=== PATIENT | female | born 1950 | race Hispanic/Latino ===

== ENCOUNTER 2019-06-10 07:41 | Emergency (ER) | payer OTHER, MEDICARE ==
[2019-06-10 08:19] LABS: Basophils % 0.6 % (0-1.3); Hematocrit 45.8 % (36.0-45.0); Lymphocytes % 28.5 % (15.3-44.8); MPV 8.9 fL (7.6-11.3); RBC Red Blood Cell Count 5.34 M/uL (3.86-4.86)
[2019-06-10 08:21] LABS: Protime INR 0.96
[2019-06-10 08:35] LABS: ALT/SGPT 41 U/L (12-78); AST/SGOT 24 U/L (15-37); Albumin 3.6 g/dL (3.4-5.0); Alkaline Phosphatase 150 U/L (45-117); BUN Blood Urea Nitrogen 24 mg/dL (7-18); Bicarbonate 30 mmol/L (21-32); Bilirubin Direct 0.1 mg/dL (0-0.2); Bilirubin Total 0.5 mg/dL (0.2-1.0); Glucose Level 106 mg/dL (74-106); Magnesium 2.5 mg/dL (1.8-2.4); NT PRO-BNP 46 pg/mL (<125); Potassium 3.7 mmol/L (3.5-5.1); Protein, Total 7.5 g/dL (6.4-8.2); Sodium Level 142 mmol/L (136-145); Troponin (Emerg Dept Use Only) < 0.02 ng/mL (0.0-0.045)
[2019-06-10] MEDS ORDERED: KETOROLAC 30 MG/ML INJ ONE (08:56)
--- NOTE | 2019-06-10 09:10 | RAD REPORT ---
EXAM DESCRIPTION: Samir Single View06/10/2019 8:13 am CLINICAL HISTORY: Chest pain COMPARISON: October 2018 FINDINGS: The lungs appear clear of acute infiltrate. The heart is normal size IMPRESSION: No acute abnormalities displayed
--- NOTE | 2019-06-10 09:53 | ER ---
Nurse's Notes [facility] Name: Anjelica Davidson Age: 68 yrs Sex: Female : 1950 Arrival Date: 06/10/2019 Time: 07:43 Bed 5 Private MD: Dexter Woody Diagnosis: Chest pain, unspecified Presentation: 06/10 07:44 Presenting complaint: Right breast pain that began Sunday and resolved. Pt reports aa5 pain came back last night. Denies SOB or other symptoms. Pt reports pain is aggravated by movement. 07:44 Transition of care: patient was not received from another setting of care. Onset of aa5 symptoms was May 2019. Risk Assessment: Do you want to hurt yourself or someone else? Patient reports no desire to harm self or others. Initial Sepsis Screen: Does the patient meet any 2 criteria? No. Patient's initial sepsis screen is negative. Does the patient have a suspected source of infection? No. Patient's initial sepsis screen is negative. Care prior to arrival: None. 07:44 Acuity: IMAN 3 aa5 07:44 Method Of Arrival: Wheelchair aa5 Historical: - Allergies: 07:48 [place]; aa5 07:48 Promethazine; aa5 07:48 Cephalexin (Rash); aa5 07:48 Azithromycin (Rash); aa5 - Home Meds: 07:48 Lasix 20 mg Oral tab [Active]; metoprolol ER 25mg [Active]; lovastatin 20 mg Oral tab aa5 [Active]; Replesta 50,000 unit oral wafr [Active]; - PMHx: 07:48 Hypertension; Hyperlipidemia; aa5 - PSHx: 07:48 hemorrhoidectomy; Hysterectomy; aa5 07:48 Appendectomy; Cholecystectomy; Knee surgery; aa5 - Immunization history:: Pneumococcal vaccine is up to date, Flu vaccine is up to date. - Social history:: Smoking status: Patient/guardian denies using tobacco, Patient/guardian denies using alcohol, street drugs, The patient lives with family. - Ebola Screening: : No symptoms or risks identified at this time. - Family history:: not pertinent. Screenin:55 Abuse screen: Denies threats or abuse. Nutritional screening: No deficits noted. aa5 Tuberculosis screening: No symptoms or risk factors identified. Fall Risk None identified. Assessment: 07:45 General: Appears uncomfortable, Behavior is calm, cooperative. Pain: Complains of pain aa5 in right breast Pain does not radiate. Pain currently is 10 out of 10 on a pain scale. Quality of pain is described as sharp, Pain began 2-3 days ago. Is episodic, lasting a few seconds. Neuro: Level of Consciousness is awake, alert, obeys commands, Oriented to person, place, time, situation. Cardiovascular: Heart tones S1 S2 present Rhythm is regular. Respiratory: Airway is patent Respiratory effort is even, unlabored, Respiratory pattern is regular, symmetrical, Breath sounds are clear bilaterally. Denies cough, shortness of breath. GI: Abdomen is round obese, Bowel sounds present X 4 quads. Abd is soft and non tender X 4 quads. Patient currently denies nausea, vomiting. : No signs and/or symptoms were reported regarding the genitourinary system. EENT: No signs and/or symptoms were reported regarding the EENT system. Derm: Skin is pink, warm \\T\\ dry. Musculoskeletal: Range of motion: intact in all extremities. 07:47 Reassessment: Patient is alert, oriented x 3, equal unlabored respirations, skin aa5 warm/dry/pink. Patient states feeling better. General: Appears comfortable. Pain: Pain currently is 0 out of 10 on a pain scale. 08:52 Reassessment: Patient is alert, oriented x 3, equal unlabored respirations, skin aa5 warm/dry/pink. Awaiting chest x-ray results. Pt notified of wait time. Pt requesting pain medication at this time, pt states "I just don't want anything strong for pain". MD was notified of pt's request. . 10:00 Reassessment: Patient is alert, oriented x 3, equal unlabored respirations, skin aa5 warm/dry/pink. Patient states feeling better. Vital Signs: 07:47 BP 181 / 83; Pulse 73; Resp 20 S; Temp 97.6(O); Pulse Ox 100% on R/A; Weight 124.74 kg aa5 (R); Height 5 ft. 3 in. (160.02 cm) (R); Pain 10/10; 08:15 BP 178 / 94; Pulse 74; Resp 16 S; Pulse Ox 99% on R/A; aa5 08:50 BP 149 / 79; Pulse 68; Resp 16 S; Pulse Ox 96% on R/A; Pain 5/10; aa5 10:00 BP 150 / 79; Pulse 67; Resp 16 S; Temp 97.8(TE); Pulse Ox 99% on R/A; Pain 3/10; aa5 07:47 Body Mass Index 48.71 (124.74 kg, 160.02 cm) aa5 ED Course: 07:43 Patient arrived in ED. am2 07:43 Dexter Woody MD is Private Physician. am2 07:44 Rosemarie Dominguez RN is Primary Nurse. aa5 07:44 Arm band placed on Patient placed in an exam room, on a stretcher. aa5 07:45 Patient has correct armband on for positive identification. Placed in gown. Bed in low aa5 position. Call light in reach. Side rails up X2. Adult w/ patient. telemetry monitor on. Pulse ox on. NIBP on. 07:48 Gold Peña MD is Attending Physician. ma2 07:50 EKG done, by printer repair technician. reviewed by Gold Peña MD. aa5 07:57 Triage completed. aa5 08:01 Inserted saline lock: 20 gauge in right antecubital area, using aseptic technique. vc Blood collected. 08:01 Initial lab(s) drawn, by me, sent to lab. vc 08:31 No provider procedures requiring assistance completed. Patient maintains SpO2 aa5 saturation greater than 95% on room air. 10:04 IV discontinued, intact, bleeding controlled, No redness/swelling at site. Pressure aa5 dressing applied. Administered Medications: 08:59 Drug: TORadol 30 mg Route: IVP; Site: right antecubital; aa5 09:15 Follow up: Response: No adverse reaction aa5 Outcome: 09:52 Discharge ordered by . ma2 10:05 Discharged to home ambulatory, with family. aa5 10:05 Condition: stable 10:05 Discharge instructions given to patient, Instructed on discharge instructions, follow up and referral plans. Demonstrated understanding of instructions, follow-up care. 10:08 Patient left the ED. aa5 Signatures: Rosemarie Dominguez RN RN aa5 Kiah Christie am2 Gold Peña MD MD ma2 Poonam Todd, RN RN vc Corrections: (The following items were deleted from the chart) 08:04 07:47 BP 181 / 83; Pulse 73bpm; Resp 20bpm; Spontaneous; Pulse Ox 100% RA; 124.74 kg aa5 Reported; Height 5 ft. 3 in. Reported; BMI: 48.7; Pain 10/10; aa5
--- NOTE | 2019-06-10 09:54 | EDPHYS ---
Physician Documentation [facility] Name: Anjelica Davidson Age: 68 yrs Sex: Female : 1950 Arrival Date: 06/10/2019 Time: 07:43 Bed 5 Private MD: Dexter Woody ED Physician Gold Peña HPI: 06/10 08:18 This 68 yrs old Female presents to ER via Wheelchair with complaints of Chest ma2 Pain. 08:18 The patient or guardian reports chest pain that is located primarily in the anterior ma2 chest wall. Onset: gradually, 1 day(s) ago. Associated signs and symptoms: Pertinent negatives: abdominal pain, diaphoresis, lower extremity pain, nausea. Severity of pain: At its worst the pain was mild in the emergency department the pain is unchanged. The patient has experienced similar episodes in the past. left sided chest pain that is constant for a week, unchanged, worse with right arm movement, reproducible on exam, timis score is zero . Historical: - Allergies: 07:48 [place]; aa5 07:48 Promethazine; aa5 07:48 Cephalexin (Rash); aa5 07:48 Azithromycin (Rash); aa5 - Home Meds: 07:48 Lasix 20 mg Oral tab [Active]; metoprolol ER 25mg [Active]; lovastatin 20 mg Oral tab aa5 [Active]; Replesta 50,000 unit oral wafr [Active]; - PMHx: 07:48 Hypertension; Hyperlipidemia; aa5 - PSHx: 07:48 hemorrhoidectomy; Hysterectomy; aa5 07:48 Appendectomy; Cholecystectomy; Knee surgery; aa5 - Immunization history:: Pneumococcal vaccine is up to date, Flu vaccine is up to date. - Social history:: Smoking status: Patient/guardian denies using tobacco, Patient/guardian denies using alcohol, street drugs, The patient lives with family. - Ebola Screening: : No symptoms or risks identified at this time. - Family history:: not pertinent. ROS: 08:18 Constitutional: Negative for fever, chills, and weight loss. ma2 08:18 All other systems are negative. Exam: 08:18 Constitutional: This is a well developed, well nourished patient who is awake, alert, ma2 and in no acute distress. Eyes: Pupils equal round and reactive to light, extra-ocular motions intact. Lids and lashes normal. Conjunctiva and sclera are non-icteric and not injected. Cornea within normal limits. Periorbital areas with no swelling, redness, or edema. ENT: Nares patent. No nasal discharge, no septal abnormalities noted. Tympanic membranes are normal and external auditory canals are clear. Oropharynx with no redness, swelling, or masses, exudates, or evidence of obstruction, uvula midline. Mucous membranes moist. Neck: Trachea midline, no thyromegaly or masses palpated, and no cervical lymphadenopathy. Supple, full range of motion without nuchal rigidity, or vertebral point tenderness. No Meningismus. Chest/axilla: Normal chest wall appearance and motion. tender on right chest with no deformity. No lesions are appreciated. Cardiovascular: Regular rate and rhythm with a normal S1 and S2. No gallops, murmurs, or rubs. Normal PMI, no JVD. No pulse deficits. Respiratory: Lungs have equal breath sounds bilaterally, clear to auscultation and percussion. No rales, rhonchi or wheezes noted. No increased work of breathing, no retractions or nasal flaring. Abdomen/GI: Soft, non-tender, with normal bowel sounds. No distension or tympany. No guarding or rebound. No evidence of tenderness throughout. Neuro: Awake and alert, GCS 15, oriented to person, place, time, and situation. Cranial nerves II-XII grossly intact. Motor strength 5/5 in all extremities. Sensory grossly intact. Cerebellar exam normal. Normal gait. Vital Signs: 07:47 BP 181 / 83; Pulse 73; Resp 20 S; Temp 97.6(O); Pulse Ox 100% on R/A; Weight 124.74 kg aa5 (R); Height 5 ft. 3 in. (160.02 cm) (R); Pain 10/10; 08:15 BP 178 / 94; Pulse 74; Resp 16 S; Pulse Ox 99% on R/A; aa5 08:50 BP 149 / 79; Pulse 68; Resp 16 S; Pulse Ox 96% on R/A; Pain 5/10; aa5 10:00 BP 150 / 79; Pulse 67; Resp 16 S; Temp 97.8(TE); Pulse Ox 99% on R/A; Pain 3/10; aa5 07:47 Body Mass Index 48.71 (124.74 kg, 160.02 cm) aa5 MDM: 07:48 Patient medically screened. me2 08:18 Differential diagnosis: esophagitis, gastroesophageal reflux disease (GERD), pleurisy, ma2 pneumonia, stable angina. NICOLLE Risk Score: not applicable. Data reviewed: vital signs, nurses notes. Counseling: I had a detailed discussion with the patient and/or guardian regarding: the historical points, exam findings, and any diagnostic results supporting the discharge/admit diagnosis, the presence of at least one elevated blood pressure reading (>120/80) during this emergency department visit, the need for outpatient follow up, declined pain medicine . 06/10 07:49 Order name: Basic Metabolic Panel [facility] 06/10 07:49 Order name: CBC with Diff [facility] 06/10 07:49 Order name: LFT's [facility] 06/10 07:49 Order name: Magnesium [facility] 06/10 07:49 Order name: NT PRO-BNP [facility] 06/10 07:49 Order name: PT-INR [facility] 06/10 07:49 Order name: Troponin (emerg Dept Use Only) [facility] 06/10 08:23 Order name: Protime (+INR); Complete Time: 09:46 [facility] 06/10 08:24 Order name: CBC with Automated Diff; Complete Time: 09:46 [facility] 06/10 08:36 Order name: Basic Metabolic Panel; Complete Time: 09:46 [facility] 06/10 08:36 Order name: Liver (Hepatic) Function; Complete Time: 09:46 [facility] 06/10 08:36 Order name: Troponin (Emerg Dept Use Only); Complete Time: 09:46 [facility] 06/10 08:36 Order name: NT PRO-BNP; Complete Time: 09:46 [facility] 06/10 08:36 Order name: Magnesium; Complete Time: 09:46 [facility] 06/10 07:49 Order name: XRAY Chest (1 view) [facility] 06/10 07:49 Order name: EKG; Complete Time: 07:50 [facility] 06/10 07:49 Order name: Cardiac monitoring; Complete Time: 07:55 [facility] 06/10 07:49 Order name: EKG - Nurse/Tech; Complete Time: 07:55 [facility] 06/10 07:49 Order name: IV Saline Lock; Complete Time: 08:07 [facility] 06/10 07:49 Order name: Labs collected and sent; Complete Time: 08:07 [facility] 06/10 07:49 Order name: O2 Per Protocol; Complete Time: 07:55 [facility] 06/10 07:49 Order name: O2 Sat Monitoring; Complete Time: 07:55 [facility] 06/10 09:11 Order name: RAD; Complete Time: 09:46 EDMS Administered Medications: 08:59 Drug: TORadol 30 mg Route: IVP; Site: right antecubital; aa5 09:15 Follow up: Response: No adverse reaction aa5 Disposition: 06/10/19 09:52 Discharged to Home. Impression: Chest pain, unspecified. - Condition is Stable. - Discharge Instructions: Nonspecific Chest Pain. - Medication Reconciliation Form, Thank You Letter, Antibiotic Education, Prescription Opioid Use form. - Follow up: Private Physician; When: Tomorrow; Reason: Continuance of care. Signatures: Dispatcher [employer] Rosemarie Hendrix RN RN aa5 Gold Peña MD MD ma2 Corrections: (The following items were deleted from the chart) 10:08 09:52 06/10/2019 09:52 Discharged to Home. Impression: Chest pain, unspecified. aa5 Condition is Stable. Forms are Medication Reconciliation Form, Thank You Letter, Antibiotic Education, Prescription Opioid Use. Follow up: Private Physician; When: Tomorrow; Reason: Continuance of care. ma2
[2019-06-10 10:23] VITALS: TEMP 97.6
[2019-06-10 10:27] VITALS: BP 149/79; O2SAT 96
--- NOTE | 2019-06-11 07:57 | EKG ---
Test Date: 2019-06-10 Test Time: 07:51:57 [employer] Worker: JACINTA MEASUREMENT RESULTS: Intervals: Rate: 73 VA: 154 QRSD: 82 QT: 364 QTc: 401 [place]: P: 31 VA: 154 QRS: 7 T: 35 INTERPRETIVE STATEMENTS: Normal sinus rhythm Normal ECG Compared to ECG 10/08/2014 09:15:01 No significant changes Electronically Signed On 06-11-19 07:57:05 [employer] by Anjum Stallings
== END 2019-06-10 10:08 | disposition home or self-care (01) ==
LOC: ER 07:41
DX: R07.9 Chest pain, unspecified (principal); I10 Essential (primary) hypertension; E78.5 Hyperlipidemia, unspecified; Z88.1 Allergy status to other antibiotic agents; Z88.5 Allergy status to narcotic agent
CPT/HCPCS: 36415; 71045; 80048; 80076; 83735; 83880; 84484; 85025; 85610; 93005; 96374; 99285